=== PATIENT | male | born 1975 | race Caucasian/White ===

== ENCOUNTER 2022-02-04 15:16 | Emergency (ER) | payer BC ==
[2022-02-04 16:01] LABS: HEMOGLOBIN 15.6 gm/dl (14.0-17.5); RED BLOOD COUNT 5.19 M/UL (4.20-5.50); WHITE BLOOD COUNT 13.3 K/UL (4.5-11.0)
[2022-02-04 16:19] LABS: BUN/CREATININE RATIO 13 (0-10)
[2022-02-04] MEDS ORDERED: ZOFRAN ODT 4 MG4 MG SL (20:34)
[2022-02-04] MEDS ORDERED: TORADOL 10 MG T10 MG PO (20:34)
[2022-02-04] MEDS ORDERED: HYDROCODON-ACE1 EAC4 PO (20:35)
== END 2022-02-04 20:52 | disposition home or self-care (01) ==
LOC: ER1 15:16
PROVIDERS: Physician Assistant
DX: N13.2 Hydronephrosis with renal and ureteral calculous obstruction (principal); Z87.442 Personal history of urinary calculi
CPT/HCPCS: 80053; 81001; 85025; 96374; 96375; 99284; J1885; J2270; J2405